=== PATIENT | female | born 1975 ===

== ENCOUNTER 2017-07-10 16:00 | Emergency (ER) | payer OTHER ==
[2017-07-10 16:48] VITALS: BP 121/76; PULSE 74; RESP 16; TEMP 98.4; O2SAT 100
--- NOTE | 2017-07-10 20:28 | ED PDOC ---
HPI: General Adult Time Seen by Provider: 07/10/17 20:05 Chief Complaint (Nursing): Abnormal Skin Integrity Chief Complaint (Provider): Lump in Breast History Per: Patient History/Exam Limitations: no limitations Onset/Duration Of Symptoms: Days (x 3) Current Symptoms Are (Timing): Still Present Additional Complaint(s): Felicia is a 41 y/o female who presents to the ED complaining of a painful lump in her left breast that she first noticed on Saturday. Patient states that on Saturday her left breast was inflamed and had developed a lump. Today the lump has grown bigger and she complains of a fever. Patient is not on control. LMP: June 20 PMD: None Past Medical History Reviewed: Historical Data, Nursing Documentation, Vital Signs Vital Signs: Last Vital Signs Temp 98.4 F 07/10/17 16:44 Pulse 74 07/10/17 16:44 Resp 16 07/10/17 16:44 BP 121/76 07/10/17 16:44 Pulse Ox 100 07/10/17 20:31 - Family History Family History: States: Unknown Family Hx - Immunization History Hx Tetanus Toxoid Vaccination: No - Allergies Allergies/Adverse Reactions: Allergies Allergy/AdvReac Type Severity Reaction Status Date / Time No Known Allergies Allergy Verified 07/10/17 16:44 Review of Systems ROS Statement: Except As Marked, All Systems Reviewed And Found Negative Musculoskeletal: Positive for: Other (left breast pain, lump) Physical Exam - Reviewed Nursing Documentation Reviewed: Yes Vital Signs Reviewed: Yes - Physical Exam Appears: Positive for: Well, Non-toxic, No Acute Distress Skin: Positive for: Normal Color, Warm, Dry Comments: Mass on lateral side of left breast, 3.5-4cm x 2cm, fibrotic - ECG O2 Sat by Pulse Oximetry: 100 (RA) Pulse Ox Interpretation: Normal Medical Decision Making Medical Decision Making: Time: 20:05 Initial Impression: Mass on Left Breast Initial Plan: --[facility]. Scribe Attestation: Documented by David Contreras acting as a scribe for Anuel Ferrera PA-C MD Scribe Attestation: All medical record entries made by the Scribe were at my direction and personally dictated by me. I have reviewed the chart and agree that the record accurately reflects my personal performance of the history, physical exam, medical decision making, and the department course for this patient. I have also personally directed, reviewed, and agree with the discharge instructions and disposition. Disposition - Clinical Impression Clinical Impression: Breast mass in female - Patient ED Disposition Is Patient to be Admitted: No Doctor Will See Patient In The: Office Counseled Patient/Family Regarding: Studies Performed, Need For Followup - Disposition [facility]errals[facility] Disposition: Routine/Home Disposition Time: 20:50 Condition: GOOD Additional Instructions: you are referred [facility] the [facility] for further testing and evaluation Instructions: Common Breast Problems, Fibrocystic Breast Changes (DC) Forms: [facility] (Macedonian), [employer] ([place]) Print Language: [place]
== END 2017-07-10 21:13 | disposition home or self-care (01) ==
LOC: H.ER 16:00
DX: N63.20 Unspecified lump in the left breast, unspecified quadrant (principal)